=== PATIENT | female | born 1955 | race Caucasian/White ===

== ENCOUNTER 2019-05-04 17:28 | Emergency (ER) | payer OTHER ==
[~2019-05-04] VITALS: Ht 162.6 cm; Wt 62.1 kg
[2019-05-04] MEDS ORDERED: TRAM50TA2 PO (17:47)
[2019-05-04] MEDS ORDERED: CYCL5TAB PO (17:47)
[2019-05-04] MEDS ORDERED: SIMV20TA6 PO (17:47)
[2019-05-04] MEDS ORDERED: TRAZ-182 PO (17:47)
--- NOTE | 2019-05-04 17:57 | NUR ---
PT IS IN ROOM #2B. DR FITZPATRICK EVALUATED THE PT.
[2019-05-04 18:06] LABS: BASOPHILS % (AUTO) 0.5 % (0.0-2.0); EOSINOPHILS # (AUTO) 0.1 K/uL (0.0-0.7); EOSINOPHILS % (AUTO) 2.6 % (0.0-7.0); HEMATOCRIT 41.3 % (31.2-41.9); HEMOGLOBIN 13.9 g/dL (10.9-14.3); LYMPHOCYTES # (AUTO) 1.9 K/uL (20.0-40.0); LYMPHOCYTES % (AUTO) 35.5 % (20.5-51.5); MEAN CORPUSCULAR HEMOGLOBIN 28.9 uug (24.7-32.8); MEAN CORPUSCULAR HGB CONC 34 g/dL (32.3-35.6); MEAN CORPUSCULAR VOLUME 85.8 fL (75.5-95.3); MONOCYTES # (AUTO) 0.3 K/uL (2.0-10.0); MONOCYTES % (AUTO) 6.5 % (0.0-11.0); NEUTROPHILS # (AUTO) 2.9 K/uL (1.8-8.9); NEUTROPHILS % (AUTO) 54.9 % (38.5-71.5); PLATELET COUNT (AUTO) 238 K/uL (179-408); RED BLOOD CELL COUNT(AUTO) 4.82 MIL/uL (3.63-4.92); WHITE BLOOD COUNT (AUTO) 5.3 K/uL (3.8-11.8)
[2019-05-04 18:14] LABS: CREATININE 0.6 mg/dL (0.6-1.3); POTASSIUM 3.8 mmol/L (3.5-5.1)
[2019-05-04 18:19] LABS: BILIRUBIN,DIRECT 0.1 mg/dL (0.0-0.2); BILIRUBIN,TOTAL 0.3 mg/dL (0.2-1.0); TOTAL PROTEIN, SERUM 7.6 g/dL (6.4-8.2)
--- NOTE | 2019-05-04 19:03 | NUR ---
PT WAS RE-EVALUATED BY DR MADSEN . PT WAS D/C'd TO HOME. D/C INSTRUCTIONS GIVEN TO THE PT.
[2019-05-04 19:08] VITALS: BP 112/62
== END 2019-05-04 19:09 | disposition home or self-care (01) ==
LOC: ER 17:28
DX: M94.0 Chondrocostal junction syndrome [Tietze] (principal); E78.5 Hyperlipidemia, unspecified; Z90.49 Acquired absence of other specified parts of digestive tract; Z79.899 Other long term (current) drug therapy
CPT/HCPCS: 36415; 70030-TC; 71045; 85025; 93005; A4663

== ENCOUNTER 2021-06-01 20:52 | Emergency (ER) | payer OTHER ==
[~2021-06-01] VITALS: Ht 162.6 cm; Wt 60.8 kg
[~2021-06-01 20:52] MED LIST: CYCL5TAB PO; SIMV-46 PO; TRAM50TA2 PO; TRAZ-182 PO
--- NOTE | 2021-06-01 22:44 | NUR ---
MD Foster in room to do MSE.
[2021-06-01] MEDS ORDERED: FENO48TA6 PO (23:01)
[2021-06-02] MEDS ORDERED: AZIT500T PO (00:12)
[2021-06-02] MEDS ORDERED: PRED50TA PO (00:12)
--- NOTE | 2021-06-02 00:24 | NUR ---
Patient discharged to home in stable condition. Written and verbal after care instructions given. Patient verbalizes understanding of instructions. Stressed follow up or return to ER for worsening s/s. Patient out of ER with steady gait, no acute signs of distress, VSS, all belongings taken, provided with copies of xray and lab results.
[2021-06-02 00:25] VITALS: BP 110/80
== END 2021-06-02 00:25 | disposition home or self-care (01) ==
LOC: ER 20:52
DX: J18.9 Pneumonia, unspecified organism (principal); Z20.822 Contact with and (suspected) exposure to COVID-19; E78.5 Hyperlipidemia, unspecified; Z90.49 Acquired absence of other specified parts of digestive tract
CPT/HCPCS: 71045; A4663

== ENCOUNTER 2022-09-19 18:06 | Emergency (ER) | payer OTHER ==
[~2022-09-19] VITALS: Ht 152.4 cm; Wt 61.2 kg
[~2022-09-19 18:06] MED LIST changes: +AZIT500T PO; -CYCL5TAB PO; +FENO48TA6 PO; +PRED50TA PO; -TRAM50TA2 PO; -TRAZ-182 PO
--- NOTE | 2022-09-19 19:45 | NUR ---
FELICITASEINT WAS TRIAGED BUT LEFT WITHOUT BEING SEEN BY DR. MASSEY.
== END 2022-09-19 20:55 | disposition left against medical advice (07) ==
LOC: ER 18:06
DX: Z53.21 Procedure and treatment not carried out due to patient leaving prior to being seen by health care provider (principal)